=== PATIENT | male | born 1975 | race Caucasian/White ===

== ENCOUNTER 2017-10-17 09:07 | Emergency (ER) | payer OTHER ==
[2017-10-17] MEDS ORDERED: Aspirin 81 MG Tab.Chew PO ONE (09:23)
[2017-10-17] MEDS ORDERED: Sodium Chloride 0.9% 10 ML Syringe FLUSH PRN ×2 (09:23→11:05)
[2017-10-17] MEDS ORDERED: Iopamidol 755 Mg/ML 100 ML Bottle IVPUSH ONE (11:05)
[2017-10-17] MEDS ORDERED: Iopamidol 755 MG/ML 50 ML Bottle IVPUSH ONE (11:05)
[2017-10-17] MEDS ORDERED: Sodium Chloride 0.9% 100 ML IV SCH (11:15)
--- NOTE | 2017-10-17 13:08 | EDM.PDOC ---
ED HPI GENERAL MEDICAL PROBLEM - General Chief Complaint: Chest Pain Stated Complaint: DIFFCULTY BREATHING SENT FROM [facility] Time Seen by Provider: 10/17/17 09:18 Source of Information: Reports: Patient History Limitations: Reports: No Limitations - History of Present Illness INITIAL COMMENTS - FREE TEXT/NARRATIVE: The patient presents with a cough, chest tightness and shortness of breath. This has been going on for a couple of weeks. He went to the walk in clinic and they sent him over here. They were worried about his heart. He has no fever or chills. He does not wheeze as far as he knows. He has no heart troubles. He did smoke but he recently quit with these symptoms. He has no swelling or pain in his legs. He has no history of DVT or PE. He has no history of HTN, diabetes or hypercholesterolemia. Onset: Gradual Duration: Week(s): (2) Location: Reports: Chest Quality: Reports: Other (Tightness) Severity: Mild Improves with: Reports: None Worsens with: Reports: None Associated Symptoms: Reports: Chest Pain, Cough, Shortness of Breath. Denies: Fever/Chills, Headaches, Nausea/Vomiting Chest Pain Score (Numeric/FACES): 4 - Related Data Allergies Allergy/AdvReac Type Severity Reaction Status Date / Time No Known Allergies Allergy Verified 10/17/17 09:20 Home Meds: Home Meds Albuterol [Proventil HFA] 2 puff INH Q4H PRN #1 inhaler 10/17/17 [Rx] Doxycycline [Vibramycin] 100 mg PO BID #20 cap 10/17/17 [Rx] Past Medical History - Past Health History Medical/Surgical History: Denies Medical/Surgical History Social & Family History - Tobacco Use Smoking Status *Q: Current Every Day Smoker Years of Tobacco use: 20 Packs/Tins Daily: 1.5 - Caffeine Use Caffeine Use: Reports: Coffee, Soda - Recreational Drug Use Recreational Drug Use: No ED ROS GENERAL - Review of Systems Review Of Systems: See Below Constitutional: Reports: No Symptoms HEENT: Reports: No Symptoms Respiratory: Reports: Shortness of Breath Cardiovascular: Reports: Chest Pain Endocrine: Reports: No Symptoms GI/Abdominal: Reports: No Symptoms : Reports: No Symptoms Musculoskeletal: Reports: No Symptoms Skin: Reports: No Symptoms ED EXAM, GENERAL - Physical Exam Exam: See Below Exam Limited By: No Limitations General Appearance: Alert, No Apparent Distress Ears: Normal External Exam Nose: Normal Inspection Head: Atraumatic, Normocephalic Neck: Normal Inspection Respiratory/Chest: No Respiratory Distress, Lungs Clear, Normal Breath Sounds Cardiovascular: Regular Rate, Rhythm, No Edema, No Murmur GI/Abdominal: Soft, Non-Tender, No Organomegaly, No Mass Back Exam: Normal Inspection Extremities: Normal Inspection Neurological: Alert, Oriented, No Motor/Sensory Deficits EKG INTERPRETATION EKG Date: 10/17/17 Time: 09:16 Rhythm: Other (Sinus tachycardia) Rate (Beats/Min): 107 [place]: Normal P-Wave: Present QRS: LBBB ST-T: Normal QT: Normal Course - Vital Signs Last Recorded V/S: Last Vital Signs Temp 97.6 F 10/17/17 09:14 Pulse 110 H 10/17/17 09:14 Resp 44 H 10/17/17 09:14 BP 135/96 H 10/17/17 09:14 Pulse Ox 95 10/17/17 09:44 - Orders/Labs/Meds Orders: Active Orders 24 hr Category Date Time Status Cardiac Monitoring [RC] . DIRECTED Care 10/17/17 09:23 Active EKG Documentation Completion [RC] STAT Care 10/17/17 09:23 Active Oxygen Therapy [RC] PRN Care 10/17/17 09:23 Active Peripheral IV Care [RC] . DIRECTED Care 10/17/17 09:23 Active Ang Chest [CT] Stat Exams 10/17/17 10:58 Taken Chest 1V Frontal [CR] Stat Exams 10/17/17 09:40 Taken Sodium Chloride 0.9% [Normal Saline] 100 ml Med 10/17/17 11:15 Active IV ASDIRECTED Sodium Chloride 0.9% [Saline Flush] Med 10/17/17 09:23 Active 10 ml FLUSH ASDIRECTED PRN Sodium Chloride 0.9% [Saline Flush] Med 10/17/17 11:05 Active 10 ml FLUSH ONETIME PRN Peripheral IV Insertion Adult [OM.PC] Stat Oth 10/17/17 09:23 Ordered Medication Orders Sodium Chloride (Normal Saline) 100 mls @ 75 mls/hr IV ASDIRECTED FARHAD Last Admin: 10/17/17 11:29 Dose: 75 mls/hr Sodium Chloride (Saline Flush) 10 ml FLUSH ASDIRECTED PRN PRN Reason: Keep Vein Open Last Admin: 10/17/17 09:33 Dose: 10 ml Sodium Chloride (Saline Flush) 10 ml FLUSH ONETIME PRN PRN Reason: IV FLUSH Last Admin: 10/17/17 11:30 Dose: 10 ml Labs: Laboratory Tests 10/17/17 10/17/17 10/17/17 Range/Units 09:30 09:30 09:30 WBC 8.54 (4.23-9.07) K/mm3 RBC 4.46 L (4.63-6.08) M/mm3 Hgb 15.4 (13.7-17.5) gm/L Hct 42.8 (40.1-51.0) % MCV 96.0 H (79.0-92.2) fl MCH 34.5 H (25.7-32.2) pg MCHC 36.0 H (32.2-35.5) g/dl RDW Std Deviation 44.0 H (35.1-43.9) fL Plt Count 267 (163-337) K/mm3 MPV 10.0 (9.4-12.3) fl Neut % (Auto) 70.5 H (34.0-67.9) % Lymph % (Auto) 19.4 L (21.8-53.1) % [place] % (Auto) 7.5 (5.3-12.2) % Eos % (Auto) 2.2 (0.8-7.0) Baso % (Auto) 0.2 (0.1-1.2) % Neut # (Auto) 6.01 H (1.78-5.38) K/mm3 Lymph # (Auto) 1.66 (1.32-3.57) K/mm3 [place] # (Auto) 0.64 (0.30-0.82) K/mm3 Eos # (Auto) 0.19 (0.04-0.54) K/mm3 Baso # (Auto) 0.02 (0.01-0.08) K/mm3 D-Dimer, Quantitative 0.82 H (0.19-0.50) mg/L Sodium 138 (136-145) mEq/L Potassium 3.8 (3.5-5.1) mEq/L Chloride 104 (98-107) mEq/L Carbon Dioxide 20 L (21-32) mEq/L Anion Gap 17.8 H (5-15) BUN 11 (7-18) mg/dL Creatinine 0.9 (0.7-1.3) mg/dL Est Cr Clr Drug Dosing TNP Estimated GFR (MDRD) > 60 (>60) mL/min BUN/Creatinine Ratio 12.2 L (14-18) Glucose 128 H (74-106) mg/dL Calcium 9.0 (8.5-10.1) mg/dL Total Bilirubin 0.7 (0.2-1.0) mg/dL AST 51 H (15-37) U/L ALT 68 H (16-63) U/L Alkaline Phosphatase 62 (46-116) U/L Troponin I 0.017 (0.00-0.056) ng/mL Total Protein 7.3 (6.4-8.2) g/dl Albumin 3.6 (3.4-5.0) g/dl Globulin 3.7 gm/dL Albumin/Globulin Ratio 1.0 (1-2) 10/17/17 Range/Units 12:21 WBC (4.23-9.07) K/mm3 RBC (4.63-6.08) M/mm3 Hgb (13.7-17.5) gm/L Hct (40.1-51.0) % MCV (79.0-92.2) fl MCH (25.7-32.2) pg MCHC (32.2-35.5) g/dl RDW Std Deviation (35.1-43.9) fL Plt Count (163-337) K/mm3 MPV (9.4-12.3) fl Neut % (Auto) (34.0-67.9) % Lymph % (Auto) (21.8-53.1) % [place] % (Auto) (5.3-12.2) % Eos % (Auto) (0.8-7.0) Baso % (Auto) (0.1-1.2) % Neut # (Auto) (1.78-5.38) K/mm3 Lymph # (Auto) (1.32-3.57) K/mm3 [place] # (Auto) (0.30-0.82) K/mm3 Eos # (Auto) (0.04-0.54) K/mm3 Baso # (Auto) (0.01-0.08) K/mm3 D-Dimer, Quantitative (0.19-0.50) mg/L Sodium (136-145) mEq/L Potassium (3.5-5.1) mEq/L Chloride (98-107) mEq/L Carbon Dioxide (21-32) mEq/L Anion Gap (5-15) BUN (7-18) mg/dL Creatinine (0.7-1.3) mg/dL Est Cr Clr Drug Dosing Estimated GFR (MDRD) (>60) mL/min BUN/Creatinine Ratio (14-18) Glucose (74-106) mg/dL Calcium (8.5-10.1) mg/dL Total Bilirubin (0.2-1.0) mg/dL AST (15-37) U/L ALT (16-63) U/L Alkaline Phosphatase (46-116) U/L Troponin I 0.021 (0.00-0.056) ng/mL Total Protein (6.4-8.2) g/dl Albumin (3.4-5.0) g/dl Globulin gm/dL Albumin/Globulin Ratio (1-2) Meds: Medications Generic Name Dose Route Start Last Admin Trade Name Freq PRN Reason Stop Dose Admin Sodium Chloride 100 mls @ 75 mls/hr 10/17/17 11:15 10/17/17 11:29 Normal Saline IV 75 mls/hr ASDIRECTED FARHAD Administration Sodium Chloride 10 ml 10/17/17 09:23 10/17/17 09:33 Saline Flush FLUSH 10 ml ASDIRECTED PRN Administration Keep Vein Open Sodium Chloride 10 ml 10/17/17 11:05 10/17/17 11:30 Saline Flush FLUSH 10 ml ONETIME PRN Administration IV FLUSH Discontinued Medications Generic Name Dose Route Start Last Admin Trade Name Freq PRN Reason Stop Dose Admin Aspirin 324 mg 10/17/17 09:23 10/17/17 09:32 Aspirin PO 10/17/17 09:24 324 mg ONETIME ONE Administration Iopamidol 50 ml 10/17/17 11:05 10/17/17 11:29 Isovue-370 (76%) IVPUSH 10/17/17 11:06 50 ml ONETIME ONE Administration Iopamidol 100 ml 10/17/17 11:05 10/17/17 11:29 Isovue-370 (76%) IVPUSH 10/17/17 11:06 100 ml ONETIME ONE Administration - Re-Assessments/Exams Free Text/Narrative Re-Assessment/Exam: 10/17/17 13:10 I ordered an IV saline lock, aspirin, EKG, CXR and labs. His EKG shows a LBBB. I do not have anything to compare it to. His CXR looks good. His CBC looks good. His liver enzymes were slightly elevated. His troponin was negative. His D-dimer was slightly elevated. I ordered a CT angio of his chest. The CT shows no evidence of PE. Small bilateral pleural effusions are present. I did a repeat troponin and it was negative. It appears he has bronchitis. I will get him on some doxycycline and some albuterol for any shortness of breath. Departure - Departure Time of Disposition: 13:20 Disposition: Home, Self-Care 01 Condition: Good Clinical Impression: Atypical chest pain, Bronchitis Prescriptions: Albuterol [Proventil HFA] 2 puff INH Q4H PRN #1 inhaler PRN Reason: Shortness Of Breath Doxycycline [Vibramycin] 100 mg PO BID #20 cap Referrals: PCP,None [Primary Care Provider] - Martha Barnett MD [Physician] - 1 Week Additional Instructions: Take the doxycycline 2 times per day for 10 days. Use the albuterol inhaler 2 puffs every 6 hours if you have any shortness of breath. You have an abnormal heart rhythm called a left bundle branch block. Follow up with Dr Valentin in 1 week. Please return if you are worse. - My Orders Last 24 Hours: My Active Orders 10/17/17 09:23 Cardiac Monitoring [RC] . DIRECTED EKG Documentation Completion [RC] STAT Oxygen Therapy [RC] PRN Peripheral IV Care [RC] . DIRECTED Sodium Chloride 0.9% [Saline Flush] 10 ml FLUSH ASDIRECTED PRN Peripheral IV Insertion Adult [OM.PC] Stat 10/17/17 09:40 Chest 1V Frontal [CR] Stat 10/17/17 10:58 Ang Chest [CT] Stat 10/17/17 11:05 Sodium Chloride 0.9% [Saline Flush] 10 ml FLUSH ONETIME PRN 10/17/17 11:15 Sodium Chloride 0.9% [Normal Saline] 100 ml IV ASDIRECTED - Assessment/Plan Last 24 Hours: My Active Orders 10/17/17 09:23 Cardiac Monitoring [RC] . DIRECTED EKG Documentation Completion [RC] STAT Oxygen Therapy [RC] PRN Peripheral IV Care [RC] . DIRECTED Sodium Chloride 0.9% [Saline Flush] 10 ml FLUSH ASDIRECTED PRN Peripheral IV Insertion Adult [OM.PC] Stat 10/17/17 09:40 Chest 1V Frontal [CR] Stat 10/17/17 10:58 Ang Chest [CT] Stat 10/17/17 11:05 Sodium Chloride 0.9% [Saline Flush] 10 ml FLUSH ONETIME PRN 10/17/17 11:15 Sodium Chloride 0.9% [Normal Saline] 100 ml IV ASDIRECTED
--- NOTE | 2017-10-19 07:49 | CT ---
CT chest Technique: Multiple axial sections were obtained through the chest. Intravenous contrast was utilized. Study has been performed as a pulmonary angiogram protocol. Comparison: No prior chest CT. Findings: Pulmonary arteries are well-opacified. No filling defects are seen to indicate pulmonary embolism. Small bilateral pleural effusions are noted. Heart is enlarged. Haziness is noted around the vascular markings suspicious for mild pulmonary vascular congestion. No acute parenchymal densities are otherwise seen. Small air cyst is noted within the upper right lung. Bone window settings were reviewed which show no acute osseous abnormality. Impression: 1. No findings of pulmonary embolism. 2. Small bilateral pleural effusion as well as haziness around the vascular markings suspicious for early CHF. Diagnostic code #3 Agree with preliminary report issued by [facility] ([facility] preliminary report dictated on 10/17/17, 1:07 PM Central Time)
--- NOTE | 2017-10-19 07:49 | CR ---
Chest: Portable view of the chest was obtained. Comparison: No prior chest x-ray. Heart is enlarged. Pulmonary vessels are slightly congested. Lungs otherwise are clear. Bony structures are grossly intact. Impression: 1. Slight cardiomegaly and mild pulmonary vascular congestion. Diagnostic code #3
== END 2017-10-17 13:45 | disposition home or self-care (01) ==
LOC: JD.ED 09:07
DX: R07.89 Other chest pain (principal); J40 Bronchitis, not specified as acute or chronic; F17.210 Nicotine dependence, cigarettes, uncomplicated; Z79.899 Other long term (current) drug therapy
CPT/HCPCS: 36415; 71045; 71275; 80053; 84484; 85025; 85379; 93005; 99285; A9270; J7030; J7050; Q9967; 93010; 99284-25

== ENCOUNTER 2017-10-18 09:44 | Emergency (ER) | payer OTHER ==
[2017-10-18] MEDS ORDERED: Albuterol/Ipratropium 3.0-0.5 MG/3 ML Neb Soln NEB ONE (10:22)
--- NOTE | 2017-10-18 11:12 | EDM.PDOC ---
ED HPI GENERAL MEDICAL PROBLEM - General Chief Complaint: Respiratory Problem Stated Complaint: DIFFICULTY BREATHING/NOT GETTING BETTER Time Seen by Provider: 10/18/17 10:05 Source of Information: Reports: Patient History Limitations: Reports: No Limitations - History of Present Illness INITIAL COMMENTS - FREE TEXT/NARRATIVE: The patient presents with shortness of breath. He was seen here by myself for chest pain, shortness of breath and a cough for about 2 weeks. His EKG showed a LBBB and his CXR and chest CT looked good. His troponin was negative. I diagnosed him with bronchitis and put him on some zithromax and albuterol. He says the chest pain is all gone but he still feels short of breath especially at night. He says the shortness of breath is better. Onset: Gradual Duration: Week(s): (2) Severity: Moderate Improves with: Reports: None Worsens with: Reports: None Associated Symptoms: Reports: Cough, Shortness of Breath. Denies: Chest Pain, Fever/Chills, Nausea/Vomiting - Related Data Allergies Allergy/AdvReac Type Severity Reaction Status Date / Time No Known Allergies Allergy Verified 10/18/17 09:57 Home Meds: Home Meds Albuterol [Proventil HFA] 2 puff INH Q4H PRN #1 inhaler 10/17/17 [Rx] Doxycycline [Vibramycin] 100 mg PO BID #20 cap 10/17/17 [Rx] Albuterol Sulfate 2.5 mg IH Q6HR #25 ampule 10/18/17 [Rx] Codeine/Promethazine [Phenergan with Codeine] 5 - 10 ml PO Q6HR PRN #240 ml [Rx] predniSONE [Prednisone] 40 mg PO DAILY #10 tablet 10/18/17 [Rx] Past Medical History - Past Health History Medical/Surgical History: Denies Medical/Surgical History Social & Family History - Tobacco Use Smoking Status *Q: Current Every Day Smoker Years of Tobacco use: 20 Packs/Tins Daily: 1.5 Second Hand Smoke Exposure: No - Caffeine Use Caffeine Use: Reports: Coffee - Recreational Drug Use Recreational Drug Use: No ED ROS GENERAL - Review of Systems Review Of Systems: See Below Constitutional: Reports: No Symptoms HEENT: Reports: No Symptoms Respiratory: Reports: Shortness of Breath, Cough Cardiovascular: Reports: Chest Pain (Gone now) Endocrine: Reports: No Symptoms GI/Abdominal: Reports: No Symptoms : Reports: No Symptoms ED EXAM, GENERAL - Physical Exam Exam: See Below Exam Limited By: No Limitations General Appearance: Alert, No Apparent Distress Ears: Normal External Exam Nose: Normal Inspection Head: Atraumatic, Normocephalic Neck: Normal Inspection Respiratory/Chest: No Respiratory Distress, Decreased Breath Sounds. No: Wheezing Cardiovascular: Regular Rate, Rhythm, No Edema, No Murmur GI/Abdominal: Soft, Non-Tender, No Organomegaly, No Mass Extremities: Normal Inspection Neurological: Alert, Oriented, No Motor/Sensory Deficits Course - Vital Signs Last Recorded V/S: Last Vital Signs Temp 98.0 F 10/18/17 09:59 Pulse 105 H 10/18/17 09:59 Resp 16 10/18/17 09:59 BP 138/97 H 10/18/17 09:59 Pulse Ox 97 10/18/17 10:22 - Orders/Labs/Meds Orders: Active Orders 24 hr Category Date Time Status RT Aerosol Therapy [RC] ASDIRECTED Care 10/18/17 10:22 Active Labs: Laboratory Tests 10/18/17 Range/Units 10:35 Troponin I 0.043 (0.00-0.056) ng/mL Meds: Medications Discontinued Medications Generic Name Dose Route Start Last Admin Trade Name Angel PRN Reason Stop Dose Admin Albuterol/Ipratropium 3 ml 10/18/17 10:22 10/18/17 10:32 Duoneb 3.0-0.5 Mg/3 Ml NEB 10/18/17 10:23 3 ml ONETIME ONE Administration Prednisone 40 mg 10/19/17 10:22 Prednisone PO 10/19/17 10:23 ONETIME ONE Prednisone 40 mg 10/18/17 11:23 10/18/17 11:28 Prednisone PO 10/18/17 11:24 40 mg ONETIME ONE Administration - Re-Assessments/Exams Free Text/Narrative Re-Assessment/Exam: 10/18/17 11:19 His repeat troponin was negative. He feels a little better after the treatment. I also gave him a dose of prednisone here. I will give him some albuterol nebs at home, prednisone and phenergan with codeine. Departure - Departure Time of Disposition: 11:25 Disposition: Home, Self-Care 01 Condition: Good Clinical Impression: Bronchitis - Discharge Information Prescriptions: Albuterol Sulfate 2.5 mg IH Q6HR #25 ampule Codeine/Promethazine [Phenergan with Codeine] 5 - 10 ml PO Q6HR PRN #240 ml PRN Reason: Cough predniSONE [Prednisone] 40 mg PO DAILY #10 tablet Referrals: PCP,None [Primary Care Provider] - Martha Barnett MD [Physician] - 1 Week Forms: ED Department Discharge, ED Return to Work/School Form Additional Instructions: Keep taking the azithromycin. Use the albuterol neb every 6 hours as needed for shortness of breath. Take the prednisone daily for 5 days. You can start tomorrow. You had a dose today. Take the phenergan with codeine 5 to 10mls every 6 hours as needed for cough. Please return if you are worse. - My Orders Last 24 Hours: My Active Orders 10/18/17 10:22 RT Aerosol Therapy [RC] ASDIRECTED - Assessment/Plan Last 24 Hours: My Active Orders 10/18/17 10:22 RT Aerosol Therapy [RC] ASDIRECTED
[2017-10-18] MEDS ORDERED: predniSONE 10 MG Tab PO ONE (11:23)
[2017-10-19] MEDS ORDERED: predniSONE 20 MG Tab PO ONE (10:22)
== END 2017-10-18 11:46 | disposition home or self-care (01) ==
LOC: JD.ED 09:44
DX: J40 Bronchitis, not specified as acute or chronic (principal); F17.210 Nicotine dependence, cigarettes, uncomplicated
CPT/HCPCS: 36415; 84484; 94640; 99285; A9270; 99283

== ENCOUNTER 2017-10-29 22:51 | Emergency (ER) | payer OTHER ==
[2017-10-29] MEDS ORDERED: Sodium Chloride 0.9% 10 ML Syringe FLUSH PRN (23:25)
--- NOTE | 2017-10-29 23:26 | EDM.PDOC ---
ED HPI GENERAL MEDICAL PROBLEM - General Chief Complaint: Respiratory Problem Stated Complaint: DISORIENTED DIFFICULTY BREATHING PRIOR HEART ISSUE Time Seen by Provider: 10/29/17 23:24 Source of Information: Reports: Patient History Limitations: Reports: No Limitations - History of Present Illness INITIAL COMMENTS - FREE TEXT/NARRATIVE: 42-year-old male presents to the ED with gradually worsening dyspnea over the last at least 4 weeks if not longer. This is associated with gradually worsening orthopnea and PND. He rarely sees a physician. Apparently went to clinic today and did have an echocardiogram carried out which apparently showed a very low ejection fraction. Started on Lasix 40 mg once daily about 3 days ago. He ghas appreciated increased dependent edema. He states his legs have improved already lost 5 pounds of weight since starting the Lasix. He came into the ED tonight because he worries that he is choking and has to sit up to breathe. Concern is that he is going to "drown " and not wake up in the morning. He is scheduled to see cardiology tomorrow afternoon in [place] at 1330 hrs. Other that he is ready to jump on an airplane and travel to [place] for definitive cardiology assessment and management. Patient drinks alcohol on a daily basis. He also smokes a pack of cigarettes daily. He is not known to have any ischemic heart disease. He denies any chest pain on exertion only shortness of breath. Denies minimal cough except sometimes at night due to a tickle feeling in his throat he has no history of IV drug abuse. Remote history of short-term anabolic steroid use as a youngster. Onset: Gradual (Follow over the last 4-6 weeks) Duration: Week(s):, Getting Worse Location: Reports: Chest, Other (Associated orthopnea and PND.) Quality: Reports: Other Severity: Moderate ([place]) Improves with: Reports: Rest Worsens with: Reports: Other (In sitting up), Movement Context: Denies: Activity, Exercise, Lifting, Sick Contact, Trauma, Other Associated Symptoms: Reports: Malaise. 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 (see below) (Started Lasix 40 mg once daily 3 days ago.) - Related Data Allergies Allergy/AdvReac Type Severity Reaction Status Date / Time No Known Allergies Allergy Verified 10/29/17 23:11 Home Meds: Home Meds Benzonatate [Tessalon Perle] 100 mg PO TID 10/29/17 [History] Furosemide [Lasix] 40 mg PO DAILY 10/29/17 [History] Past Medical History - Past Health History Medical/Surgical History: Denies Medical/Surgical History Social & Family History - Tobacco Use Smoking Status *Q: Current Every Day Smoker Tobacco Use Within Last Twelve Months: Cigarettes (1 pack per day) Years of Tobacco use: 20 Packs/Tins Daily: 0.5 - Caffeine Use Caffeine Use: Reports: Coffee - Alcohol Use Alcohol Use History: Yes Days Per Week of Alcohol Use: 5 Number of Drinks Per Day: 3 Total Drinks Per Week: 15 - Recreational Drug Use Recreational Drug Use: No ED ROS GENERAL - Review of Systems Review Of Systems: See Below Constitutional: Reports: Malaise, Weakness, Fatigue. Denies: Fever, Chills, Decreased Appetite, Weight Loss HEENT: Reports: No Symptoms Respiratory: Reports: Shortness of Breath, Cough, Other (Shortness of breath that wakes him up at night i.e. paroxysmal nocturnal dyspnea and orthopnea). Denies: Wheezing, Pleuritic Chest Pain, Sputum, Hemoptysis (On productive) Cardiovascular: Reports: Dyspnea on Exertion (Increased swelling of his lower extremities are last month.), Edema. Denies: Chest Pain, Blood Pressure Problem , Claudication, Lightheadedness, Orthopnea Endocrine: Reports: Fatigue GI/Abdominal: Denies: Abdominal Pain, Anorexia, Black Stool, Bloody Stool, Constipation, Diarrhea, Decreased Appetite, Distension, Flatus, Hematemesis, Hematochezia, Melena, Nausea, Stool Incontinence, Vomiting, Other : Reports: Frequency (Increased frequency since starting) Musculoskeletal: Reports: No Symptoms Skin: Reports: No Symptoms Neurological: Reports: No Symptoms Psychiatric: Reports: No Symptoms Hematologic/Lymphatic: Reports: No Symptoms Immunologic: Reports: No Symptoms ED EXAM, GENERAL - Physical Exam Exam: See Below Exam Limited By: No Limitations General Appearance: WD/WN, Anxious, Moderate Distress Eye Exam: Bilateral Eye: Normal Fundi Throat/Mouth: Normal Inspection, Normal Lips, Normal Teeth, Normal Oropharynx Head: Atraumatic, Normocephalic Neck: Normal Inspection, Supple, Non-Tender, Full Range of Motion, Other ([place] does have jugular venous pulsations evident 3 cm meters below the angles of his mandibles. ). No: Carotid Bruit, Lymphadenopathy (L), Lymphadenopathy (R) Respiratory/Chest: No Respiratory Distress, Lungs Clear, Chest Non-Tender, Decreased Breath Sounds. No: Rales, Rhonchi (Mildly decreased air entry to both lower lung caruso without wheezes or rhonchi or rales), Wheezing Cardiovascular: Normal Peripheral Pulses, Regular Rate, Rhythm, No Gallop, No Murmur, No Rub Peripheral Pulses: 3+: Posterior Tibial (L), Posterior Tibial (R), Dorsalis Pedis (L), Dorsalis Pedis (R) GI/Abdominal: Normal Bowel Sounds, Soft, Non-Tender, No Organomegaly, No Abnormal Bruit, No Mass, Pelvis Stable Extremities: Pedal Edema (2+ pitting edema both lower extremities. All symptoms mid tib-fib bilaterally.) Neurological: Alert, Oriented, CN II-XII Intact, Normal Cognition, Normal Gait Psychiatric: Normal Affect, Normal Mood Skin Exam: Warm, Dry, Intact, Normal Color, No Rash EKG INTERPRETATION EKG Date: 10/29/17 Time: 23:05 Rhythm: NSR Rate (Beats/Min): 90 Furman: LAD-Left Furman Deviation (-10) P-Wave: Enlarged (Left atrial enlargement.) QRS: Other (Left bundle branch block. There is left ventricular hypertrophy pattern. There are near Q waves V1 to V4. Rule out old anteroseptal myocardial infarction.) ST-T: Other (There is T-wave inversion 1 and aVL.) QT: Prolonged (QT is mildly prolonged.) EKG Interpretation Comments: Abnormal ECG. Course - Vital Signs Last Recorded V/S: Last Vital Signs Temp 36.2 C 10/29/17 23:05 Pulse 98 10/29/17 23:05 Resp 16 10/29/17 23:05 BP 121/90 10/29/17 23:05 Pulse Ox 96 10/29/17 23:05 - Orders/Labs/Meds Orders: Active Orders 24 hr Category Date Time Status EKG Documentation Completion [RC] STAT Care 10/29/17 23:25 Active Peripheral IV Care [RC] . DIRECTED Care 07/05/18 23:26 Active Chest 1V Frontal [CR] Stat Exams 10/29/17 23:25 Taken Sodium Chloride 0.9% [Saline Flush] Med 10/29/17 23:25 Active 10 ml FLUSH ASDIRECTED PRN Peripheral IV Insertion Adult [OM.PC] Stat Oth 10/29/17 23:26 Ordered Medication Orders Sodium Chloride (Saline Flush) 10 ml FLUSH ASDIRECTED PRN PRN Reason: Keep Vein Open Last Admin: 10/29/17 23:53 Dose: 10 ml Labs: Laboratory Tests 10/29/17 10/29/17 10/29/17 Range/Units 23:37 23:37 23:37 WBC 8.47 (4.23-9.07) K/mm3 RBC 4.60 L (4.63-6.08) M/mm3 Hgb 15.8 (13.7-17.5) gm/L Hct 45.3 (40.1-51.0) % MCV 98.5 H (79.0-92.2) fl MCH 34.3 H (25.7-32.2) pg MCHC 34.9 (32.2-35.5) g/dl RDW Std Deviation 47.3 H (35.1-43.9) fL Plt Count 291 (163-337) K/mm3 MPV 10.0 (9.4-12.3) fl Neutrophils % (Manual) 52 (40-60) % Band Neutrophils % 1 (0-10) % Lymphocytes % (Manual) 43 H (20-40) % Atypical Lymphs % 0 % Monocytes % (Manual) 3 (2-10) % Eosinophils % (Manual) 1 (0.8-7.0) % Basophils % (Manual) 0 L (0.2-1.2) Platelet Estimate Adequate RBC Morph Comment Normal PT 11.2 (9.5-12.1) SECONDS INR 1.03 Sodium 137 (136-145) mEq/L Potassium 3.9 (3.5-5.1) mEq/L Chloride 104 (98-107) mEq/L Carbon Dioxide 25 (21-32) mEq/L Anion Gap 11.9 (5-15) BUN 20 H (7-18) mg/dL Creatinine 1.0 (0.7-1.3) mg/dL Est Cr Clr Drug Dosing 100.38 mL/min Estimated GFR (MDRD) > 60 (>60) mL/min BUN/Creatinine Ratio 20.0 H (14-18) Glucose 116 H (74-106) mg/dL Calcium 8.6 (8.5-10.1) mg/dL Magnesium 2.3 (1.8-2.4) mg/dl Total Bilirubin 0.9 (0.2-1.0) mg/dL AST 44 H (15-37) U/L ALT 65 H (16-63) U/L Alkaline Phosphatase 53 (46-116) U/L CK-MB (CK-2) 1.4 (0-3.6) ng/ml Troponin I 0.031 (0.00-0.056) ng/mL NT-Pro-B Natriuret Pep (0-125) pg/mL Total Protein 6.9 (6.4-8.2) g/dl Albumin 3.6 (3.4-5.0) g/dl Globulin 3.3 gm/dL Albumin/Globulin Ratio 1.1 (1-2) Ethyl Alcohol 0.00 (0.00) gm% //18 Range/Units 23:37 WBC (4.23-9.07) K/mm3 RBC (4.63-6.08) M/mm3 Hgb (13.7-17.5) gm/L Hct (40.1-51.0) % MCV (79.0-92.2) fl MCH (25.7-32.2) pg MCHC (32.2-35.5) g/dl RDW Std Deviation (35.1-43.9) fL Plt Count (163-337) K/mm3 MPV (9.4-12.3) fl Neutrophils % (Manual) (40-60) % Band Neutrophils % (0-10) % Lymphocytes % (Manual) (20-40) % Atypical Lymphs % % Monocytes % (Manual) (2-10) % Eosinophils % (Manual) (0.8-7.0) % Basophils % (Manual) (0.2-1.2) Platelet Estimate RBC Morph Comment PT (9.5-12.1) SECONDS INR Sodium (136-145) mEq/L Potassium (3.5-5.1) mEq/L Chloride (98-107) mEq/L Carbon Dioxide (21-32) mEq/L Anion Gap (5-15) BUN (7-18) mg/dL Creatinine (0.7-1.3) mg/dL Est Cr Clr Drug Dosing mL/min Estimated GFR (MDRD) (>60) mL/min BUN/Creatinine Ratio (14-18) Glucose (74-106) mg/dL Calcium (8.5-10.1) mg/dL Magnesium (1.8-2.4) mg/dl Total Bilirubin (0.2-1.0) mg/dL AST (15-37) U/L ALT (16-63) U/L Alkaline Phosphatase (46-116) U/L CK-MB (CK-2) (0-3.6) ng/ml Troponin I (0.00-0.056) ng/mL NT-Pro-B Natriuret Pep 3645 H (0-125) pg/mL Total Protein (6.4-8.2) g/dl Albumin (3.4-5.0) g/dl Globulin gm/dL Albumin/Globulin Ratio (1-2) Ethyl Alcohol (0.00) gm% Meds: Medications Generic Name Dose Route Start Last Admin Trade Name Freq PRN Reason Stop Dose Admin Sodium Chloride 10 ml 10/29/17 23:25 10/29/17 23:53 Saline Flush FLUSH 10 ml ASDIRECTED PRN Administration Keep Vein Open Discontinued Medications Generic Name Dose Route Start Last Admin Trade Name Freq PRN Reason Stop Dose Admin Furosemide 40 mg 10/29/17 23:46 10/29/17 23:51 Lasix IVPUSH 10/29/17 23:47 40 mg NOW ONE Administration - Radiology Interpretation Free Text/Narrative:: 42-year-old male attends the ED with increasing dyspnea on minimal exertion. He' s had gradually worsening dyspnea on exertion and development of orthopnea and PND over the last month or 6 weeks. He had an echocardiogram done in the clinic today which showed very low ejection fraction. At this point time is unclear what the culprit etiology is for his cardiomyopathy. Component of ischemia versus alcoholism etc. - Re-Assessments/Exams Free Text/Narrative Re-Assessment/Exam: 10/30/17 00:46 chest x-ray reveals moderate cardiomegaly. Visualized portions the lungs are clear with slight hyperinflation.Labs are back. Total white count is normal at 8.47. Differential is 52% neutrophils 1% bands. Hemoglobin is normal at 15.8 with hematocrit of 45.3. MCV is mildly elevated at 98.5. I understand he takes alcohol on a daily basis. Count is 291,000. PT is 11.2 with an INR 1.03. Sodium is 137 with potassium of 3.9. Chloride is 104 with a bicarbonate 25. Anion gap is 11.9. BUNs 20 with a creatinine of 1.0. GFR is greater than 60. Glucose is 116. Calcium is 8.6. Magnesium is normal at 2.3. Bilirubin is 0.9. AST is mildly elevated at 44. ELT is 65. Alk phosphatase is normal at 53. CK-MB fraction is 1.4. Troponin I is less than 0.031. BNP is 3645. 10/30/17 01:10 Patient prefers to stay in the ED until about 6:00 this morning as he is very apprehensive that is going to drown from his fluid build up in his lungs. . He will be allowed to sleep in the ED to leave this morning when he has plans then to make arrangements to travel to [place] where he has a cardiology assessment later this afternoon. Departure - Departure Time of Disposition: 06:00 Disposition: Home, Self-Care 01 Condition: Fair Clinical Impression: Congestive heart failure Qualifiers: Heart failure type: unspecified Heart failure chronicity: acute Qualified Code( s): I50.9 - Heart failure, unspecified Cardiomyopathy Qualifiers: Cardiomyopathy type: unspecified Qualified Code(s): I42.9 - Cardiomyopathy, unspecified - Discharge Information Instructions: Cardiomyopathy, Adult Referrals: PCP,None [Primary Care Provider] - Forms: ED Department Discharge Additional Instructions: Evaluation the emergency room tonight in regards to increased troubles breathing that has been gradually worsening over the period of at least a month. Increased orthopnea or troubles lying down to sleep and awakening during the night short of breath. These are all signs and symptoms of congestive heart failure. You have associated fluid in your lower extremities. Recently started on Lasix 40 mg once daily in the morning with a 5 pound reported weight loss. Cardiac exam done yesterday in clinic apparently revealed that the ejection fraction or how well your pump is functioning was poor. It is therefore suggested that you require follow-up with orientation and mobility specialist and this appointment has been arranged for today at 1:30 in May. The assessment done in the ED tonight showed no other abnormalities other than an elevated BNP which is a measuring stick for how well the heart is functioning. It is elevated at 3645 with normal being up to 125. Rest x-ray reveals an enlarged heart but no collection of fluid in the lungs per se. Therefore your heart muscle has become weakened for some on reason. This is for the assistant designer to try and identify what is happened to make the heart muscle weaker. It is highly suspect this may well be a viral-induced myocarditis or infection inflammation of the muscle of the heart making it week. Treated with Lasix 40 mg intravenously in the emergency department with good urine loss. You were able to sleep in the ED overnight without awakening short of breath. Copies of your labs sent ECG or sent along with you for your cardiology appointment today. X-ray done in the ED today was also sent to [facility] PACS system and could be looked at by your orientation and mobility specialist as well. Expect medications to be changed to try and make your heart muscle stronger. You are also required further investigations. - My Orders Last 24 Hours: My Active Orders 10/29/17 23:25 EKG Documentation Completion [RC] STAT Chest 1V Frontal [CR] Stat Sodium Chloride 0.9% [Saline Flush] 10 ml FLUSH ASDIRECTED PRN 10/29/17 23:26 Peripheral IV Care [RC] . DIRECTED Peripheral IV Insertion Adult [OM.PC] Stat - Assessment/Plan Last 24 Hours: My Active Orders 10/29/17 23:25 EKG Documentation Completion [RC] STAT Chest 1V Frontal [CR] Stat Sodium Chloride 0.9% [Saline Flush] 10 ml FLUSH ASDIRECTED PRN 10/29/17 23:26 Peripheral IV Care [RC] . DIRECTED Peripheral IV Insertion Adult [OM.PC] Stat
[2017-10-29] MEDS ORDERED: Furosemide 40 MG/4 ML VIAL IVPUSH ONE (23:46)
--- NOTE | 2017-11-02 09:02 | CR ---
Chest: Portable view of the chest is obtained. Comparison: Prior chest x-ray on 10/26/17. Heart is slightly enlarged. Lungs are clear with no acute parenchymal change. Pulmonary vessels show mild upper lobe redistribution. Bony structures are grossly intact. Impression: 1. Mild cardiomegaly. Upper lobe pulmonary vascular redistribution. 2. Nothing acute is otherwise seen. Diagnostic code #3
== END 2017-10-30 06:10 | disposition home or self-care (01) ==
LOC: JD.ED 22:51
DX: I50.9 Heart failure, unspecified (principal); I42.9 Cardiomyopathy, unspecified; F17.210 Nicotine dependence, cigarettes, uncomplicated; Z79.899 Other long term (current) drug therapy
CPT/HCPCS: 36415; 71045; 80053; 82553; 83735; 83880; 84484; 85007; 85027; 85610; 93005; 96374; 99285; G0480; J1940; J7050

== ENCOUNTER 2023-05-03 08:57 | Emergency (ER) | payer OTHER ==
[2023-05-03] MEDS ORDERED: Fluorescein 1 MG Ophth Strip EYERT ONE (09:31)
[2023-05-03] MEDS ORDERED: Proparacaine 0.5% Ophth Soln 15 ML Bottle EYERT ONE (09:31)
== END 2023-05-03 10:20 | disposition home or self-care (01) ==
LOC: JD.ED 08:57
DX: H10.31 Unspecified acute conjunctivitis, right eye (principal); F17.210 Nicotine dependence, cigarettes, uncomplicated; Z79.899 Other long term (current) drug therapy
CPT/HCPCS: 99283; J3490

== ENCOUNTER 2025-03-26 04:10 | Emergency (ER) | payer OTHER | END 2025-03-26 04:40 | disposition home or self-care (01) | LOC: JD.ED 04:10 | DX: R04.0 Epistaxis (principal); I11.0 Hypertensive heart disease with heart failure; I50.9 Heart failure, unspecified; Z79.899 Other long term (current) drug therapy; Z79.84 Long term (current) use of oral hypoglycemic drugs | CPT/HCPCS: 99283 ==